=== PATIENT | female | born 1975 | race Caucasian/White ===

== ENCOUNTER → 2017-02-22 | Outpatient (CLI) | payer OTHER | LOC: GMAM 08:00 | PROVIDERS: ATTEND Family Medicine | DX: E53.9 Vitamin B deficiency, unspecified (principal); R53.83 Other fatigue; E34.9 Endocrine disorder, unspecified ==

== ENCOUNTER → 2017-08-06 | Outpatient (CLI) | payer OTHER | END | disposition home or self-care (01) | LOC: GMA 15:33 | PROVIDERS: ATTEND Nurse Practitioner Acute Care | DX: E03.9 Hypothyroidism, unspecified (principal) ==

== ENCOUNTER → 2018-06-10 | Outpatient (CLI) | payer OTHER ==
--- NOTE | 2018-06-12 09:22 | MAM ---
EXAM DESCRIPTION: 3D Screening BILATERAL : Digital Mammography. CLINICAL HISTORY: 43 years Female SCREENING . No complaints. No personal history or family history of breast cancer. Childbirth. Hysterectomy 6 years ago. No HRT. Lifetime risk of developing breast cancer (Tyrer-Cuzick model)(%): 7.3. COMPARISON: 2-D digital diagnostic bilateral study 05/04/2014. Ultrasound left breast on that same visit. TECHNIQUE: Bilateral CC and MLO projection full-field images, Digital tomosynthesis mammographic technique. Bilateral digital 2-D full-field MLO images. CAD not utilized FINDINGS: The breast parenchymal density pattern is: Heterogeneously dense breast tissue, which may obscure small masses. No skin thickening or nipple retraction. Skin marker indicating a skin mole on the posterior medial right breast. Posterior lymph nodes near the pectoral muscle bilaterally. No new focal, stellate mass or density, focal asymmetry , and no suspicious microcalcifications bilaterally. Stable mammograms compared to prior study. Taking into account, differences in mammographic technique. IMPRESSION: Benign exam. BIRAD CATEGORY: 2 BENIGN FINDINGS. RECOMMENDATIONS: FOLLOW UP: Routine digital bilateral screening, one year interval from June 2018. Written communication explaining the IMPRESSION and follow-up, will be mailed to the patient and referring health care provider. According to the [employer], yearly mammograms are recommended starting at age 40 and continuing as long as a woman is in good health. Any breast change noted on a breast self-exam should be reported promptly to the patient's healthcare provider. Breast MRI is recommended for women with an approximately 20-25% or greater lifetime risk of breast cancer, including women with a strong family history of breast or ovarian cancer and women who have been treated for Hodgkin's disease. A negative mammographic report should not delay tissue diagnosis in patients with significant clinical history or physical findings. Extremely dense breast tissue limits the sensitivity of digital mammography. Electronically signed by: Alex Jimenez MD 06/12/2018 9:21 AM CDT
== END ==
LOC: MAMMO 10:00
PROVIDERS: ATTEND Family Medicine
DX: Z12.31 Encounter for screening mammogram for malignant neoplasm of breast (principal)

== ENCOUNTER → 2020-02-05 | Outpatient (CLI) | payer OTHER ==
--- NOTE | 2020-02-05 11:49 | US ---
EXAM DESCRIPTION: Pelvic,Non-OB: Ultrasound. CLINICAL HISTORY: 44 years Female PELVIC AND PERINEAL PAIN COMPARISON: None. TECHNIQUE: Transcutaneous scanning through the urine filled bladder. Endovaginal scanning. Robles-scale and Doppler modes. FINDINGS: Uterus surgically absent.. Cervix not seen. Cul-de-sac: Minimal fluid.. Right ovary 2.1 x 2.0 x 1.9 cm. 4.1 mL. Decreased color Doppler vascularity. 1.6 cm follicle but no cysts. No adnexal mass. Minimal Free fluid. Left ovary not visualized. No adnexal mass or free fluid. IMPRESSION: Right ovary with decreased color flow. 1.6 cm follicle. Left ovary not visualized. Minimal fluid in the cul-de-sac and in the left adnexa. No further ultrasound imaging follow-up recommended. Electronically signed by: Alex Jimenez MD 02/05/2020 11:48 AM CDT
== END ==
LOC: LAB.O 10:21
PROVIDERS: ATTEND Nurse Practitioner Family
DX: R18.8 Other ascites (principal); N83.9 Noninflammatory disorder of ovary, fallopian tube and broad ligament, unspecified

== ENCOUNTER → 2020-09-26 | Outpatient (CLI) | payer OTHER ==
--- NOTE | 2020-09-27 09:27 | RAD ---
EXAM DESCRIPTION: Chest,2 Views CLINICAL HISTORY: PLEURODYNIA COMPARISON: May 10, 2014 FINDINGS: Two-view chest x-ray shows cardiomediastinal silhouette and pulmonary vasculature to be within normal limits. The lungs are normally aerated and clear. Costophrenic angles are sharp. Osseous structures are unremarkable IMPRESSION: No radiographic evidence of acute cardiopulmonary disease. Electronically signed by: Hernandez Sanchez MD 09/27/2020 9:25 AM REGULATORY COORDINATOR
== END ==
LOC: LAB.O 15:26
PROVIDERS: ATTEND Nurse Practitioner Family
DX: R07.81 Pleurodynia (principal)